=== PATIENT | female | born 1950 | race African-American/Black ===

== ENCOUNTER 2024-12-07 23:16 | Emergency (ER) | payer MEDICARE, OTHER, SELFPAY ==
[2024-12-07 23:18] VITALS: BP 238/111; PULSE 62; RESP 18; TEMP 36.4; O2SAT 98; BMI 24.1
--- NOTE | 2024-12-07 23:41 | EKG12_ITS ---
Test Reason : DYSRHYTHMIA Blood Pressure : */* mmHG Vent. Rate : 56 BPM Atrial Rate : 56 BPM P-R Int : 142 ms QRS Dur : 82 ms QT Int : 434 ms P-R-T Axes : 32 -25 -11 degrees QTcB Int : 418 ms Sinus bradycardia Moderate voltage criteria for LVH, may be normal variant ( R in aVL , [place] product ) Nonspecific T wave abnormality Abnormal ECG No previous ECGs available Confirmed by Marquise Sam ([id number]), proposal editor TANA CARRANZA ([id number]) on 12/10/2024 5:49:57 AM Referred By: Confirmed By: Marquise Sam
[2024-12-08] MEDS: hydrALAZINE 20 MG/ML Vial IV (00:02)
[2024-12-08 00:16] VITALS: BP 164/60; PULSE 57; RESP 18; O2SAT 98
[2024-12-08 00:18] LABS: Absolute Lymphocyte Count 2.63 X10^3/uL (0.83-4.51); Absolute Neutrophil Count 2.3 X10^3/uL (2.0-7.7); Basophil# 0.06 X10^3/uL; Basophil% 1.1 % (0-1); Eosinophil# 0.19 X10^3/uL; Eosinophils% 3.4 % (0-5); Hematocrit 37.6 % (37-47); Hemoglobin 12.1 g/dL (12.0-15.0); Lymphocyte # 2.63 X10^3/ul (0.83-4.51); Lymphocyte % 46.7 % (19-41); Mean Corp Hgb Conc 32.2 g/dL (32-36); Mean Corpuscular Hgb 28.3 pg (27.0-32.0); Mean Corpuscular Volume 87.9 fL (81-99); Mean Platelet Vol. 9.7 fl (6.2-12.0); Monocyte# 0.43 X10^3/uL; Monocyte% 7.6 % (0-10); NRBC Flagged by Analyzer 0 % (0-5); Neutrophil # 2.31 X10^3/uL (2.7-7.7); Platelet Count 271 K/mm3 (150-450); RBC Distribution Width CV 12.7 % (11.6-14.6); RBC Distribution Width SD 40.9 fl (35.1-43.9); Red Blood Count 4.28 M/mm3 (4.2-5.4); White Blood Count 5.6 K/mm3 (4.4-11.0)
[2024-12-08 00:35] LABS: Anion Gap 7 (5-15); BUN 12 mg/dL (7-18); BUN/Creat Ratio 13.8 RATIO (10-20); Calcium,Total 9.8 mg/dL (8.5-10.1); Chloride 106 mmol/L (98-107); Creatinine, Serum 0.87 mg/dL (0.55-1.02); EST Glomerular Filtration Rate 68 mL/min (>60); Est Glom Filt Rate - Afr Amer 82 mL/min (>60); Estimated Creatinine Clearance 49.73 ml/min; Glucose 96 mg/dL (74-106); Potassium 3.6 mmol/L (3.5-5.1); Sodium Level 138 mmol/L (136-145)
[2024-12-08 01:00] VITALS: BP 164/74; PULSE 62; RESP 14; O2SAT 100
--- NOTE | 2024-12-08 01:35 | EDS_ITS ---
HPI History of Present Illness Chief Complaint: Hypertension Informant: patient and family Narrative Narrative: Patient is a 74-year-old female with past medical history of pretension hyperlipidemia and type 2 diabetes. She states she has been taking her blood pr essure medications as directed but despite this her blood pressure has been running high and she is also noted a headache. She states there is been no fevers or chills or trauma. She states her family doctor performed an outpatient MRI which did not reveal any obvious anatomical cause for her headache. Patient states that despite taking her medications the blood pressure has been persistently high and secondary to this she comes in for evaluation. Patient denies any excessive stimulant use or illicit drug use [facility] Medical History (Updated 12/13/24 @ 06:[address] Gurinder Coleman, DO) Fibromyalgia Hypertension Type 2 diabetes mellitus Hyperlipidemia Hx of aneurysm Home Medications ?Medication ?Instructions ?Recorded ?Last Taken ?Type atenolol 1 tab PO DAILY 12/07/24 Unkn own History clonidine 1 patch topical QWEEK Unknown History losartan 1 tab PO DAILY 12/07/24 Unkn own History metformin 1 tab PO TID 12/07/24 Unknow n History atorvastatin 1 tab PO QHS 12/08/24 Unknow n History hydralazine 10 mg tablet 10 mg PO 4X/DAY 30 days #120 tabs 12/08/24 Unknown Rx sertraline 2 tab PO BID 12/08/24 Unknow n History Allergy/AdvReac Type Severity Reaction Status Date / Time lisinopril Allergy Rash Verified 12/07/24 23:18 Family History (Updated 12/07/24 @ 23:34 by Krystal Mooney) Brother CVA (cerebral vascular accident) Surgical History (Updated 12/08/24 @ 00:06 by Krystal Mooney) Hx of lymph node excision Hx of hysterectomy Social History Smoking Status: Never smoker ROS ROS ED Constitutional Constitutional ED: Denies chills or fever(s) Eyes Eyes: Denies blurry vision or change in vision ENT ENT ED: Denies sore throat Cardiovascular Cardiovascular: Denies chest pain Respiratory/Chest Respiratory/Chest: Denies cough or dyspnea Gastrointestinal Gastrointestinal: Denies abdominal pain, diarrhea, nausea or vomiting Genitourinary Genitourinary ED: Denies dysuria Musculoskeletal Musculoskeletal: Denies neck pain Integumentary Denies rash Neurologic Neurologic: Reports headache(s) Hematologic/Lymphatic Hematologic/Lymphatic: Denies easy bleeding or easy bruising EXAM Physical Exam Const Vital Signs: 12/07/24 23:18 12/07/24 23:31 12/08/24 00:16 Temperature 97.5 F L Temperature Source Temporal Pulse Rate 62 57 L Respiratory Rate 18 18 Respiratory Effort Normal Non-Labored Respiratory Pattern Normal Blood Pressure 238/111 H 164/60 H Blood Pressure Mean 153 94 Pulse Ox 98 98 Oxygen Delivery Method Room Air Room Air Positive well nourished and well developed General Appearance ED: well developed; Negative for pallor HEENT HEENT Narrative: Normocephalic atraumatic No signs of depressed or basilar skull fracture Eyes PERRL and EOMs intact bilaterally General Eye ED: Negative for scleral icterus Neck supple and no JVD Neck Narrative: No nuchal rigidity or meningeal signs Resp normal respiratory effort and clear to auscultation bilaterally Cardio regular rate and regular rhythm Rate: other Other Details: Heart is regular rate and rhythm Radial and carotid pulses are equal and symmetric GI normal to inspection, nondistended, normoactive bowel sounds, non-tender, non- distended and no masses GI Narrative: No voluntary guarding or rigidity or pulsatile mass Auscultation: normoactive bowel sounds Palpation: soft Extremity normal to inspection Neuro oriented x3, CN's II-XII intact bilaterally and no sensory deficits noted Neuro Narrative: GCS of 15 Cranial nerves II through XII are grossly intact without focal neurologic deficit No pronator drift no dysmetria no truncal ataxia NIH stroke scale score of 0 Sensorium / Orientation: alert Motor Exam: strength 5/5 throughout Psych mental status grossly normal Skin no rashes or lesions noted General Skin Exam: Negative for jaundice or pallor MDM MDM MDM Narrative Medical decision making narrative: Patient arrived to the ER hypertensive but otherwise with stable vitals. In order to check for signs of endorgan damage such as acute coronary syndrome or acute kidney injury and EKG and basic blood work were obtained. With her persistent headache there is concern that the hypertension has led to a spontaneous subarachnoid or subdural hemorrhage so a CT of the head was ordered as well in order to rule out a potential dissection a CTA was obtained. CT and CTA revealed no acute findings. Blood work revealed no signs of acute kidney injury or clinically significant [place] abnormality and EKG was sinus going against acute coronary syndrome. She was given medication in the ER and her blood pressure reduced between 15 and 25% which is the goal reduction in ER and after treatment headache improved as well. Therefore at this time with no signs of endorgan damage no signs of ACS or dissection or acute brain bleed there is no need for further intervention and she is otherwise safe for discharge History & Record Review Discussion w/independent historian: Patient and Family Lab Data Attestation: I reviewed the patient's lab results. Labs: Laboratory Results - last 24 hr 12/08/24 00:00 WBC 5.6 RBC 4.28 Hgb 12.1 Hct 37.6 MCV 87.9 MCH 28.3 MCHC 32.2 RDW Std Deviation 40.9 RDW Coeff of Kala 12.7 Plt Count 271 MPV 9.7 Immature Gran % (Auto) 0.200 Neut % (Auto) 41.0 L Lymph % (Auto) 46.7 H [place] % (Auto) 7.6 Eos % (Auto) 3.4 Baso % (Auto) 1.1 H Absolute Neuts (auto) 2.3 Absolute Lymphs (auto) 2.63 Nucleated RBC % 0 Sodium 138 Potassium 3.6 Chloride 106 Carbon Dioxide 25.0 Anion Gap 7 BUN 12 Creatinine 0.87 Estim Creat Clear Calc 49.73 Est GFR (MDRD) Af Amer 82 Est GFR (MDRD) Non-Af 68 BUN/Creatinine Ratio 13.8 Glucose 96 Calcium 9.8 Radiography Diagnostic Testing: Clinical Impression(s) from Imaging Studies Brain CT 12/08/24 23:41 IMPRESSION: No acute intracranial abnormality. Reading Location: [facility] Chest/Abdomen/Pelvis CTA 12/08/24 23:41 IMPRESSION: 1. No acute process. 2. Chronic/incidental findings as above. One or more dose reduction techniques were used (e.g., Automated exposure control, adjustment of the mA and/or kV according to patient size, use of iterative reconstruction technique). Reading Location: [facility] Discharge Plan Triage Chief Complaint: Hypertension ED Provider: Gurinder Coleman Dx/Rx/DC Orders Clinical Impression: Accelerated hypertension, Type 2 diabetes mellitus, Fibromyalgia, Hyperlipidemia Instructions: Hypertension Dc Prescriptions: New hydralazine 10 mg tablet 10 mg PO 4X/DAY 30 Days Qty: 120 0RF No Action losartan 1 tab PO DAILY atenolol 1 tab PO DAILY clonidine 1 patch topical QWEEK metformin 1 tab PO TID sertraline 2 tab PO BID atorvastatin 1 tab PO QHS Primary Care Provider: Jaci Chacko NP Referrals: Jaci Chacko NP, ENVIRONMENTAL LABORATORY TECHNICIAN-C [Primary Care Provider] - Activity Restrictions/Additional Instructions: Please add the hydralazine prescribed from the ER to your medication regimen for stricter blood pressure control. Follow-up with your family doctor for repeat evaluation and to discuss potential medication adjustment and return to the ER should you have any further concerns Print Language: Persian Disposition Disposition: Home, Self Care Discharge Date/Time: 12/08/24 01:59
[2024-12-08] MEDS: Ondansetron 4 MG/2 ML Vial IV (01:48)
[2024-12-08] MEDS: Morphine 4 MG/ML Syringe IV (01:48)
[2024-12-08 01:51] VITALS: BP 168/84; PULSE 61; RESP 14; TEMP 36.7; O2SAT 100
--- NOTE | 2024-12-08 23:41 | CT_ITS ---
PROCEDURE: CTA chest abdomen and pelvis REASON FOR EXAM: Pain, dissection TECHNIQUE: Multiple contiguous axial images through the chest abdomen and pelvis were obtained after the administration of intravenous contrast. Two-dimensional and three-dimensional MIP coronal and sagittal reformatted images were reconstructed. Low-dose imaging technique was utilized. COMPARISON: None. FINDINGS: Chest. Mild cardiomegaly. No significant pericardial effusion or coronary artery calcifications. Normal caliber thoracic aorta without dissection. Normal caliber pulmonary arteries without filling defects. No suspicious adenopathy. Superficial soft tissues are intact. Central airways are patent. No acute infiltrates, pleural effusion or pneumothorax. Mild dependent atelectasis. No suspicious pulmonary mass. No acute osseous abnormality. Degenerative changes of the spine.. Abdomen/pelvis. Liver, spleen, pancreas and adrenal glands are intact. Gallbladder is satisfactory. No significant biliary ductal dilation. Kidneys enhance symmetrically. No suspicious renal mass, calculi or hydronephrosis. Urinary bladder is intact. No bowel obstruction, focal bowel wall thickening or significant perienteric inflammation. No pelvic free fluid. No free air. No abdominal aortic aneurysm, dissection or branch vessel occlusion. 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 No suspicious adenopathy. Superficial soft tissues are intact. No acute osseous abnormality. Mild chronic appearing compression deformity of L1. Multilevel degenerative changes of the spine. CT/CTA Chst, Abd, Pel W and/or WO IMPRESSION: 1. No acute process. 2. Chronic/incidental findings as above. One or more dose reduction techniques were used (e.g., Automated exposure contr ol, adjustment of the mA and/or kV according to patient size, use of iterative reconstruction technique). Reading Location: [facility]
--- NOTE | 2024-12-08 23:41 | CT_ITS ---
EXAM: CT brain without IV contrast CLINICAL HISTORY: Headache COMPARISON: None TECHNIQUE: Multiple contiguous axial images of the brain were obtained without the administration of intravenous contrast. Two-dimensional coronal and sagittal reformatted images were reconstructed. Low-dose imaging technique was utilized. FINDINGS: No evidence of acute intracranial hemorrhage, midline shift or mass effect. No definite CT evidence of acute territorial cortical infarction. No hydrocephalus. Mild generalized cerebral atrophy and chronic small-vessel ischemic changes. Calvarium is intact. Paranasal sinuses and mastoid air cells are clear. CT/Brain/Head without Contrast IMPRESSION: No acute intracranial abnormality. Reading Location: [facility]
== END 2024-12-08 01:59 | disposition home or self-care (01) ==
PROVIDERS: Emergency Provider Emergency Medicine; PCP Nurse Practitioner Primary Care; Visit Provider Emergency Medicine
DX: I10 Essential (primary) hypertension (principal); E11.9 Type 2 diabetes mellitus without complications; M79.7 Fibromyalgia; R51.9 Headache, unspecified; E78.5 Hyperlipidemia, unspecified; Z90.710 Acquired absence of both cervix and uterus
CPT/HCPCS: 70450; 71275; 74174; 80048; 85025; 93005; 96374; 96375; 99284; Q9967; A4216; J2405

== ENCOUNTER 2025-04-24 10:50 | Emergency (ER) | payer OTHER, SELFPAY ==
[2025-04-24] VITALS (8 sets, daily range): BP systolic 168–195; BP diastolic 67–97; PULSE 51–57; RESP 12–19; TEMP 36.2–36.6; O2SAT 98–100; BMI 23.3
--- NOTE | 2025-04-24 10:50 | ED.RN ---
PT [facility] PHONE WITH [facility] AND REFUSED TO ANSWER QUESTIONS UNTIL AFTER PHONE CALL.
--- NOTE | 2025-04-24 11:26 | EDS_ITS ---
HPI History of Present Illness Chief Complaint: Chest Pain Informant: patient Onset/Context/Timing Onset: Yesterday Activity at onset: sudden Timing: Intermittent Location: Left Chest Worsened By: - (Standing, looking down) Relieved By: Nothing Associated Symptoms: Positive for Nausea and Lightheadedness; Negative for Vomiting, Diaphoresis, Dyspnea, Cough, Fever, Acid Reflux or Palpitations Narrative Narrative: Patient presents with dizziness, lightheadedness, chest pain, and headache that began yesterday. Patient states it has been intermittent. Patient states her dizziness does feel like the room is spinning at times. Patient states she also feels like she might pass out. Patient states this is worse with standing and with looking down. Patient admits to mild headache. Patient admits to some nausea but denies any vomiting. Patient admits to some subjective chills. Patient denies any shortness of breath or cough. Patient states she has occasional pain over the left lateral chest area. Patient states this comes and goes. Patient admits to some subjective chills but denies any fevers. CVD Risk Factors: Positive for Hypertension, Diabetes and Hypercholesterolemia; Negative for Family History 1' </=55 or Smoking PE Risk Factors: Negative for Recent Travel/Surgery, Recent Immobilization, Prior DVT or PE, Cancer or OCP + Smoking + >/=35 PFSH PFSH Medical History Fibromyalgia Hypertension Type 2 diabetes mellitus Hyperlipidemia Hx of aneurysm Home Medications ?Medication ?Instructions ?Recorded ?Last Taken ?Type atenolol 1 tab PO DAILY 12/07/24 Unkn own History clonidine 1 patch topical QWEEK Unknown History losartan 1 tab PO DAILY 12/07/24 Unkn own History metformin 1 tab PO TID 12/07/24 Unknow n History atorvastatin 1 tab PO QHS 12/08/24 Unknow n History hydralazine 10 mg tablet 10 mg PO 4X/DAY 30 days #120 tabs 12/08/24 Unknown Rx sertraline 2 tab PO BID 12/08/24 Unknow n History diazepam 2 mg tablet 2 mg PO TID PRN PRN Vertigo #10 04/24/25 Unknown Rx TABLETS Allergy/AdvReac Type Severity Reaction Status Date / Time lisinopril Allergy Rash Verified 04/24/25 13:53 Family History (Updated 12/07/24 @ 23:34 by Krystal Mooney) Brother CVA (cerebral vascular accident) Surgical History Hx of lymph node excision Hx of hysterectomy Social History Smoking Status: Never smoker ROS ROS ED Constitutional Constitutional ED: Reports chills; Denies fever(s) Eyes Eyes: Denies blurry vision or change in vision ENT ENT ED: Denies rhinorrhea or sore throat Cardiovascular Cardiovascular: Denies chest pain or palpitations Respiratory/Chest Respiratory/Chest: Denies cough or dyspnea Gastrointestinal Gastrointestinal: Reports nausea; Denies vomiting Genitourinary Genitourinary ED: Denies dysuria or hematuria Musculoskeletal Musculoskeletal: Reports back pain; Denies neck pain Integumentary Denies abscess or rash Neurologic Neurologic: Denies headache(s) or weakness Allergic/Immunologic Allergic/Immunologic ED: Denies mouth swelling or urticaria EXAM Physical Exam Const Vital Signs: 04/24/25 10:50 04/24/25 10:59 04/24/25 11:50 Temperature 97.1 F L Temperature Source Temporal Pulse Rate 55 L 51 L Pulse Rate [Lying] Pulse Rate [Sitting (for 1 minute prior to obtaining)] Pulse Rate [Standing (for 1 minute prior to obtaining)] Respiratory Rate 14 16 Respiratory Effort Normal Non-Labored Blood Pressure 184/97 H 181/67 H Blood Pressure [Lying] Blood Pressure [Sitting (for 1 minute prior to obtaining)] Blood Pressure [Standing (for 1 minute prior to obtaining)] Blood Pressure Mean 126 105 Blood Pressure Mean [Lying] Blood Pressure Mean [Sitting (for 1 minute prior to obtaining)] Blood Pressure Mean [Standing (for 1 minute prior to obtaining)] Pulse Ox 98 99 Oxygen Delivery Method Room Air 04/24/25 12:00 04/24/25 13:00 04/24/25 13:33 Temperature Temperature Source Pulse Rate 52 L 51 L Pulse Rate [Lying] 52 L Pulse Rate [Sitting (for 1 minute prior to obtaining)] 57 L Pulse Rate [Standing (for 1 minute prior to obtaining)] 56 L Respiratory Rate 12 Respiratory Effort Blood Pressure 185/71 H Blood Pressure [Lying] 191/71 H Blood Pressure [Sitting (for 1 minute prior to obtaining)] 195/78 H Blood Pressure [Standing (for 1 minute prior to obtaining)] 194/79 H Blood Pressure Mean 109 Blood Pressure Mean [Lying] 111 Blood Pressure Mean [Sitting (for 1 minute prior to obtaining)] 117 Blood Pressure Mean [Standing (for 1 minute prior to obtaining)] 117 Pulse Ox 100 Oxygen Delivery Method Room Air 04/24/25 14:00 04/24/25 15:00 04/24/25 15:49 Temperature 98 F Temperature Source Pulse Rate 51 L 52 L 53 L Pulse Rate [Lying] Pulse Rate [Sitting (for 1 minute prior to obtaining)] Pulse Rate [Standing (for 1 minute prior to obtaining)] Respiratory Rate 15 19 H 15 Respiratory Effort Blood Pressure 183/88 H 168/85 H 168/85 H Blood Pressure [Lying] Blood Pressure [Sitting (for 1 minute prior to obtaining)] Blood Pressure [Standing (for 1 minute prior to obtaining)] Blood Pressure Mean 119 112 112 Blood Pressure Mean [Lying] Blood Pressure Mean [Sitting (for 1 minute prior to obtaining)] Blood Pressure Mean [Standing (for 1 minute prior to obtaining)] Pulse Ox 99 100 100 Oxygen Delivery Method Room Air Room Air Positive well nourished and well developed General Appearance ED: well developed and NAD HEENT Reports moist mucous membranes Neck supple and no JVD Resp normal respiratory effort and clear to auscultation bilaterally Cardio regular rhythm Rate: bradycardia GI soft to palpation, non-tender and non-distended Extremity normal to inspection General Extremety ED: Negative for edema or tenderness General Extremity: Negative for edema Neuro oriented x3, CN's II-XII intact bilaterally and no sensory deficits noted Sensorium / Orientation: awake and alert Motor Exam: strength 5/5 throughout Psych mental status grossly normal Heart Score History: Slightly/Non-Suspicious ECG: Nonspecific Repolarization Age: >/= 65 years Risk Factors: >/= 3 Risk Factors or History of CAD Score: 5 MDM MDM MDM Narrative Medical decision making narrative: Differential diagnosis includes vertigo, labyrinthitis, hypertensive urgency, hypertensive emergency, cardiac dysrhythmia, cardiac ischemia, pneumonia, bronchitis, urinary tract infection, and anxiety. EKG will be obtained to assess for cardiac dysrhythmia and cardiac ischemia. Chest x-ray will be obtained to assess for pneumonia and bronchitis. CBC will be obtained to assess for leukocytosis and anemia. Basic metabolic profile will be obtained to assess for electrolyte abnormality renal function. Urinalysis will be obtained to assess for urinary tract infection and hematuria. History & Record Review Additional record(s) reviewed:: Prior ED visit and Prior labs Lab Data Attestation: I reviewed the patient's lab results. Lab results narrative: CBC was reviewed. There is a slight anemia with a hemoglobin of 11.9 and hematocrit of 36.5. Basic metabolic profile was reviewed and was essentially within normal limits. Urinalysis was reviewed. There is no evidence of urinary tract infection or hematuria. Labs: Laboratory Results - last 24 hr 04/24/25 04/24/25 12:04 13:49 WBC 5.0 RBC 4.08 L Hgb 11.9 L Hct 36.5 L MCV 89.5 MCH 29.2 MCHC 32.6 RDW Std Deviation 42.6 RDW Coeff of Kala 13.0 Plt Count 218 MPV 9.9 Immature Gran % (Auto) 0.200 Neut % (Auto) 55.3 Lymph % (Auto) 32.3 [place] % (Auto) 8.6 Eos % (Auto) 3.0 Baso % (Auto) 0.6 Absolute Neuts (auto) 2.8 Absolute Lymphs (auto) 1.61 Nucleated RBC % 0 Sodium 138 Potassium 4.1 Chloride 105 Carbon Dioxide 22.0 Anion Gap 11 BUN 10 Creatinine 0.97 Estim Creat Clear Calc 44.60 L Est GFR (MDRD) Non-Af 62 BUN/Creatinine Ratio 10.2 Glucose 100 H Calcium 9.5 Urine Color Yellow Urine Clarity Clear Urine pH 7.0 Ur Specific [place] 1.010 Urine Protein Negative Urine Glucose (UA) 1000 H Urine Ketones 5 H Urine Occult Blood Negative Urine Nitrite Negative Urine Bilirubin Negative Urine Urobilinogen Normal Ur Leukocyte Esterase Negative Urine RBC 0 SEEN Urine WBC 0 SEEN Ur Squamous Epith Cells 0 SEEN Urine Bacteria 0 SEEN Urine Mucus 0 SEEN Radiography Chest X-Ray - ED: 2 View, Read by ED Physician, Read by Radiologist and No Acute Disease Diagnostic Testing: Clinical Impression(s) from Imaging Studies Chest X-Ray 04/24/25 11:45 IMPRESSION: NO ACUTE FINDINGS. Reading Location: [place] [id number] CT scan of the brain was obtained. There is no acute intracranial abnormality. This was interpreted by the radiologist and was also independently reviewed by myself. PA and lateral chest x-ray was obtained. There are 2 views. On my independent interpretation, lung brown are clear. There is normal cardiac silhouette. Bony thorax is normal. There is no acute process noted. Radiologist also interpreted the x-ray and agrees. EKG Initial EKG: Attestation: I personally reviewed and interpreted this EKG as follows: Interpretation: Sinus Bradycardia (52) and Non-Specific ST Changes Comments: EKG was obtained. On my independent interpretation, it showed a sinus bradycardia with a rate of 52. WI interval, QRS interval, and QTc intervals were all normal. There is left axis deviation at -21. There is left ventricular hypertrophy with nonspecific ST-T wave changes. Prior EKG tracings: available for review Prior: Unchanged (12/07/2024) Treatment and Re-Evaluation :: Patient was given a dose of Valium here. Patient was feeling better on reevaluation. Patient was advised that this could be vertigo. Patient was given a prescription for Valium. Patient was instructed to drink plenty of fluids. Patient was instructed to follow-up with her primary care physician in 5 to 7 days. Patient understood and was agreeable with plan. All questions were answered. Discharge Plan Triage Chief Complaint: Chest Pain ED Provider: Tommy Sumner Dx/Rx/DC Orders Clinical Impression: Vertigo, Atypical chest pain Instructions: ED Vertigo, Unspecified Prescriptions: New diazepam [diazepam] 2 mg tablet 2 mg PO TID PRN PRN (Reason: Vertigo) Qty: 10 0RF No Action losartan 1 tab PO DAILY atenolol 1 tab PO DAILY clonidine 1 patch topical QWEEK metformin 1 tab PO TID sertraline 2 tab PO BID atorvastatin 1 tab PO QHS hydralazine 10 mg tablet 10 mg PO 4X/DAY 30 Days Qty: 120 0RF Primary Care Provider: Ihsan Tobin Referrals: Ihsan Tobin MD [Primary Care Provider] - 5-7 Days PodlogarJaci NP, [employer]-[facility] [Non-Staff] - 5-7 Days Print Language: Luxembourgish Disposition Disposition: Home, Self Care Discharge Date/Time: 04/24/25 15:59
--- NOTE | 2025-04-24 11:45 | RAD_ITS ---
PROCEDURE: CHEST PA AND LATERAL 04/24/2025 REASON FOR EXAM: CHEST PAIN TECHNIQUE: CHEST PA AND LATERAL COMPARISON: None. FINDINGS: The heart is borderline enlarged. The lungs are clear. No acute osseous abnormalities. RAD/Chest PA and Lateral IMPRESSION: NO ACUTE FINDINGS. Reading Location: [place] [id number]
--- NOTE | 2025-04-24 11:45 | CT_ITS ---
PROCEDURE: BRAIN/HEAD WITHOUT CONTRAST 04/24/2025 REASON FOR EXAM: DIZZINESS TECHNIQUE: BRAIN/HEAD WITHOUT CONTRAST Coronal and Sagittal reconstruction series were provided. One or more dose reduction techniques were used (e.g., Automated exposure control, adjustment of the mA and/or kV according to patient size, use of iterative reconstruction technique. RADIATION DOSE SUMMARY: CTDlvol: 44.99 mGy DLP: 745.49 mGycm COMPARISON: Prior study dated April 24, 2025. FINDINGS: Brain: Low density in the periventricular white matter suggests mild chronic small vessel ischemic changes. Stable punctate calcifications in the basal ganglia bilaterally. This is a normal finding in patient's age. CSF Spaces: Mild generalized cerebral atrophy Sinuses/Mastoids: Clear at visualized levels Bones: Unremarkable Reading Location: [place] [address]
[2025-04-24 12:18] LABS: Hematocrit 36.5 % (37-47); Hemoglobin 11.9 g/dL (12.0-15.0); Immature Granulocytes Count 0.010 X10^3/uL (0.0-0.0); Mean Corp Hgb Conc 32.6 g/dL (32-36); Mean Corpuscular Volume 89.5 fL (81-99); Mean Platelet Vol. 9.9 fl (6.2-12.0); NRBC Flagged by Analyzer 0 % (0-5); Platelet Count 218 K/mm3 (150-450); RBC Distribution Width CV 13.0 % (11.6-14.6); RBC Distribution Width SD 42.6 fl (35.1-43.9); Red Blood Count 4.08 M/mm3 (4.2-5.4); White Blood Count 5.0 K/mm3 (4.4-11.0)
[2025-04-24 13:34] LABS: Anion Gap 11 (5-15); BUN 10 mg/dL (4-19); BUN/Creat Ratio 10.2 RATIO (10-20); Calcium,Total 9.5 mg/dL (7.6-11.0); Carbon Dioxide 22.0 mmol/L (21.0-32.0); Chloride 105 mmol/L (98-108); Estimated Creatinine Clearance 44.60 ml/min (50-250); Glucose 100 mg/dL (70-99); Potassium 4.1 mmol/L (3.3-5.1)
[2025-04-24 14:00] LABS: Mucous, Urine 0 SEEN /hpf (<or=2+); Red Blood Cells-Urine 0 SEEN /hpf (0-5); Squamous Epithelial Cells - UA 0 SEEN /hpf (5-10)
[2025-04-24 14:20] LABS: Color, Urine Yellow (Yellow); Glucose, Dipstick 1000 mg/dl (Normal); Ketone-Dipstick 5 mg/dl (Negative); Leukocyte Esterase-Dipstick Negative /ul (Negative); Nitrite-Dipstick Negative (Negative); Occult Blood-Urine Negative /ul (Negative); Protein-Dipstick Negative (Negative); Specific Gravity, Urine 1.010 (1.002-1.030); Urine Bilirubin Dipstick Negative (Negative)
== END 2025-04-24 15:59 | disposition home or self-care (01) ==
PROVIDERS: Emergency Provider Emergency Medicine; PCP Family Medicine; Visit Provider Emergency Medicine
DX: R42 Dizziness and giddiness (principal); E11.9 Type 2 diabetes mellitus without complications; R51.9 Headache, unspecified; R11.0 Nausea; R07.89 Other chest pain; E78.00 Pure hypercholesterolemia, unspecified; I10 Essential (primary) hypertension; M79.7 Fibromyalgia; Z90.710 Acquired absence of both cervix and uterus; M54.9 Dorsalgia, unspecified
CPT/HCPCS: 70450; 71046; 80048; 81001; 85025; 93005; 99285; A4216